=== PATIENT | female | born 1935 | race Caucasian/White ===

== ENCOUNTER 2022-01-04 15:23 | Inpatient (IN) | payer MEDICARE, BC ==
[~2022-01-04] VITALS: Ht 154.9 cm; Wt 56.5 kg
[2022-01-04] MEDS ORDERED: ONDANSETRON 4 MG/2 ML VIAL IV ONE (15:30)
[2022-01-04] MEDS ORDERED: IV NORMAL SALINE 1000 ML BAG IV ONE (15:30)
[2022-01-04] MEDS ORDERED: ONDANSETRON 4 MG/2 ML VIAL ONE (15:45)
[2022-01-04 16:02] LABS: HEMATOCRIT 33.2 % (31.2-41.9); MEAN CORPUSCULAR VOLUME 95.9 fL (75.5-95.3); PLATELET COUNT (AUTO) 319 K/uL (179-408)
[2022-01-04 16:05] LABS: CARBON DIOXIDE 27 mmol/L (21-32); CHLORIDE 101 mmol/L (98-107); CREATININE 1.5 mg/dL (0.6-1.3); GLUCOSE 157 mg/dL (74-106); POTASSIUM 4.1 mmol/L (3.5-5.1); UREA NITROGEN, BLOOD 32 mg/dL (7-18)
[2022-01-04 16:14] LABS: ALANINE AMINOTRANSFERASE 21 U/L (14-59); ALKALINE PHOSPHATASE 65 U/L (50-136); ASPARTATE AMINOTRANSFERASE 17 U/L (15-37); BILIRUBIN,DIRECT 0.1 mg/dL (0.0-0.2); BILIRUBIN,TOTAL 0.5 mg/dL (0.2-1.0)
[2022-01-04] MEDS ORDERED: MULT-594 PO (17:09)
[2022-01-04] MEDS ORDERED: METO25TA6 PO (17:09)
[2022-01-04] MEDS ORDERED: ACET-73 PO (17:09)
[2022-01-04] MEDS ORDERED: LOSA100T31 PO (17:09)
[2022-01-04] MEDS ORDERED: LOPE-195 PO (17:09)
[2022-01-04] MEDS ORDERED: IRON1CAP25 PO (17:09)
[2022-01-04] MEDS ORDERED: CALC1TAB35 PO (17:09)
[2022-01-04] MEDS ORDERED: MEMA10TA PO (17:09)
--- NOTE | 2022-01-04 17:41 | NUR ---
PT SEEN AND EVALUATED BY DR ABARCA.
--- NOTE | 2022-01-04 19:15 | NUR ---
Received thorough report from staff AYSHA Mcclendon. All questions answered. Nothing pending of pt except to give report to 3rd floor anahi, 307 and push pt upstairs. Covid neg, all belongings accounted for. Will be calling 3rd floor after shift change to try to give report. VSS, pt has good color and appearance. no s/sxof distress present. pt resting comfortably, awaiting transport up to room.
--- NOTE | 2022-01-04 19:50 | NUR ---
Called 3rd floor to given report, nurse busy in pt room, told that she will call back.
--- NOTE | 2022-01-04 20:30 | NUR ---
Thorough report given to staff telephone station installer Mari using sbar method. All questions answered. Asked to hold pt until room is fully cleaned and ready, approx 10min. I said that since a run just came in, ill will wait 15-20 before pushing the pt. Pt and family informed that pt will be tranfered soon, and will be preparing for transport upstair.
--- NOTE | 2022-01-04 21:00 | NUR ---
Pt transported upstairs by myself via gurney without difficulty or incident. Daughter asked about code status and discussed end-of-life decision making process and appropriateness of full code status on pt with such a gaurded prognosis. Pt's daughter said that her other sister has power of state's attorney and that she will discuss issue with her. Pt given resources to look up on google that would help them make an informed decision. Daughter was greatful for info. Pt placed on hospital bed in pos of comfort, CHIMNEY SWEEPER at bedside for initial admit vs.
[2022-01-04 21:05] VITALS: BP 158/81
--- NOTE | 2022-01-04 21:05 | NUR ---
RECEIVED PATIENT VIA GURNEY FROM ER. DAUGHTER AT BEDSIDE. PATIENT IS ALERT TO SELF. APPEARS APHASIC BUT PER DAUGHTER PATIENT HAS ADVANCED DEMENTIA AND TALKS FEW WORDS AT TIMES. VSS. NO S/S OF PAIN OR DISCOMFORT. NO FACIAL GRIMACE NOTED. NO RESP.DISTRESS NOTED. H/L INTACT AND PATENT, NOTED TO LEFT AC #20 GAUGE. PLACED ON TELE ORDERED. PACEMAKER NOTED TO LEFT CHEST WALL. PATIENT IS ON TELE AV PACING. BED ALARM ON. CALL LIGHT IN REACH. ALL NEEDS ATTENDED, WILL CONTINUE TO MONITOR AND ASSESS.
[2022-01-04] MEDS ORDERED: ONDANSETRON 4 MG/2 ML VIAL IV PRN (21:30)
[2022-01-04] MEDS ORDERED: TEMAZEPAM 15 MG CAPSULE PO PRN (21:30)
[2022-01-04] MEDS ORDERED: ACETAMINOPHEN 325 MG TABLET PO PRN (21:30)
[2022-01-04] MEDS: IV 1/2NS 1000 ML 1,000 ML IV PRN (21:48)
[2022-01-05] VITALS: BP 103/41
[2022-01-05 04:00] VITALS: BP 143/62
[2022-01-05] MEDS: PANTOPRAZOLE SODIUM 40 MG TABLET.DR PO SCH (06:32)
--- NOTE | 2022-01-05 06:48 | NUR ---
PATIENT SLEPT WELL THROUGHOUT THE NIGHT. ON TELE AV PACING. BED ALARM ON. ALL NEEDS ATTENDED. WILL CONTINUE TO MONITOR AND ASSESS.
[2022-01-05 07:07] LABS: HEMATOCRIT 30.6 % (31.2-41.9); MEAN CORPUSCULAR HEMOGLOBIN 32.1 uug (24.7-32.8); MEAN CORPUSCULAR VOLUME 94.9 fL (75.5-95.3); PLATELET COUNT (AUTO) 289 K/uL (179-408)
[2022-01-05 07:11] LABS: BILIRUBIN,TOTAL 0.5 mg/dL (0.2-1.0); CREATININE 1.1 mg/dL (0.6-1.3); MAGNESIUM 2.2 mg/dL (1.8-2.4); PHOSPHOROUS 3.2 mg/dL (2.5-4.9); POTASSIUM 4.1 mmol/L (3.5-5.1); TOTAL PROTEIN, SERUM 7.4 g/dL (6.4-8.2)
[2022-01-05 07:18] LABS: THYROID STIMULATING HORMONE 0.724 mIU/mL (0.358-3.740)
--- NOTE | 2022-01-05 08:45 | NUR ---
PATIENT SEEN BY THE PHYSICAL THERAPY FOR EVALUATION AND WAS ABLE TO AMBULATE ON THE HALLWAY WITH THE FRONT WHEEL WALKER WITH FAIR ENDURANCE AND BACK TO BED WILL CONTINUE TO OBSERVE.
[2022-01-05] MEDS: MEMANTINE HCL 5 MG TABLET PO SCH ×2 (09:09→20:33)
[2022-01-05] MEDS: MULTIVITAMINS,THERAPEUTIC TABLET PO SCH (09:09)
[2022-01-05] MEDS: METOPROLOL TARTRATE 25 MG TABLET PO SCH ×2 (09:10→20:34)
[2022-01-05] MEDS: IV 1/2NS 1000 ML 1,000 ML IV PRN (11:37)
[2022-01-05 12:00] VITALS: BP 125/37
[2022-01-05 16:00] VITALS: BP 138/57
--- NOTE | 2022-01-05 16:15 | NUR ---
IV SITE LEFT AC INFILTERATED UNABLE TO REINSERT MULTIPLE ATTEMPTS MD AWARE WITH ORDER FOR A MID MARKETING FINANCE MANAGER NOTIFIED MID LINE INSERTED TO HER RIGHT FOREARM GAUGE 18 WITH 3 ATTEMPTS CONNECTED TO HER IVF ORDERED.
--- NOTE | 2022-01-05 18:44 | NUR ---
PATIENT STRAIGHT CATH FOR URINE SPECIMEN ORDERED SINCE SHE IS INCONTINENT AND UNABLE TO PROVIDE URINE SPECIMEN AND SENT TO THE LAB
[2022-01-05 20:00] VITALS: BP 148/76
[2022-01-05 20:40] LABS: *BILIRUBIN,URIN NEGATIVE (NEGATIVE); *BLOOD, URINE 1+ (NEGATIVE); *CLARITY,URINE TURBID (CLEAR); *COLOR,URINE LIGHT YELLOW (YELLOW); *KETONES,URINE NEGATIVE (NEGATIVE); *UROBILINOGEN,URINE 0.2 E.U./dl (NORMAL); LEUKOCYTE ESTERASE ,URINE 1+ (NEGATIVE); NITRITE, URINE POSITIVE (NEGATIVE); UGLUCOSE NEGATIVE (NEGATIVE)
[2022-01-05 20:44] LABS: *CREATININE,URINE 59.8 mg/dL (30-125); *URINE TOTAL PROTEIN RANDOM 46.8 mg/dL (<150/24HR)
--- NOTE | 2022-01-05 22:30 | NUR ---
Daughter at bedside. Pt is in room air saturating at 95%. IV site at Right midline forearm 18 g intact and patent running 1/2 NS at 75 cc/hr. Call light in reach. Safety measures observed. No complaints noted. Will continue to monitor.
[2022-01-05 22:34] LABS: BACTERIA,URINE MANY /HPF (NONE SEEN); SQUAMOUS EPITHELIAL CELL,UR MANY /HPF (NONE SEEN); WBC,URINE TNTC /HPF (0-3)
--- NOTE | 2022-01-05 23:15 | NUR ---
Temperature was 100.2 F. Cooling measures were provided. Tylenol administered. Temp was rechecked after an hour, 98.2 F. Will continue to monitor.
[2022-01-06] VITALS: BP 144/72
[2022-01-06] MEDS: IV 1/2NS 1000 ML 1,000 ML IV PRN (00:32)
[2022-01-06 04:00] VITALS: BP 143/71
[2022-01-06 06:22] LABS: MEAN CORPUSCULAR HEMOGLOBIN 32.2 uug (24.7-32.8); MEAN CORPUSCULAR VOLUME 93.7 fL (75.5-95.3); PLATELET COUNT (AUTO) 273 K/uL (179-408)
[2022-01-06 06:26] LABS: BILIRUBIN,TOTAL 0.5 mg/dL (0.2-1.0); CREATININE 1.1 mg/dL (0.6-1.3); MAGNESIUM 1.8 mg/dL (1.8-2.4); PHOSPHOROUS 2.6 mg/dL (2.5-4.9); POTASSIUM 4.2 mmol/L (3.5-5.1); TOTAL PROTEIN, SERUM 6.9 g/dL (6.4-8.2)
[2022-01-06] MEDS: PANTOPRAZOLE SODIUM 40 MG TABLET.DR PO SCH (07:00)
[2022-01-06 09:31] VITALS: BP 117/94
[2022-01-06] MEDS: METOPROLOL TARTRATE 25 MG TABLET PO SCH (09:32)
[2022-01-06] MEDS: MULTIVITAMINS,THERAPEUTIC TABLET PO SCH (09:32)
[2022-01-06] MEDS: MEMANTINE HCL 5 MG TABLET PO SCH (09:32)
[2022-01-06 12:00] VITALS: BP 142/56
[2022-01-06] MEDS ORDERED: NITR100C6 PO (15:37)
--- NOTE | 2022-01-06 16:21 | NUR ---
Pt is being discharged, family at bedside waiting for other daughter to pear picker to take home. Personal belongings already taken home by family member. All discharge information and education given to daughter at bedside. IV and ID band removed. Will wheel pt down to car when transportation arrives. No signs of acute distress noted.
[2022-01-08 09:07] LABS: A/G RATIO 0.8 (0.7-1.7); ALBUMIN 2.7 g/dL (2.9-4.4); ALPHA-1-GLOBULIN 0.3 g/dL (0.0-0.4); ALPHA-2-GLOBULIN 0.8 g/dL (0.4-1.0); BETA GLOBULIN 0.8 g/dL (0.7-1.3); GAMMA GLOBULIN 1.6 g/dL (0.4-1.8); GLOBULIN, TOTAL 3.6 g/dL (2.2-3.9); M-SPIKE Not Observed g/dL (Not Observed)
== END 2022-01-06 17:05 | disposition home or self-care (01) | DRG 73 ==
LOC: ER 15:23 → TELE3 20:36
PROVIDERS: ADMIT Internal Medicine; ATTEND Nurse Practitioner Acute Care
PROC: 05H533Z Insertion of Infusion Device into Right Subclavian Vein, Percutaneous Approach (ICD-10-PCS; principal; 2022-01-05)
PROC: B546ZZA Ultrasonography of Right Subclavian Vein, Guidance (ICD-10-PCS; 2022-01-05)
DX: G90.8 Other disorders of autonomic nervous system (principal); N17.0 Acute kidney failure with tubular necrosis; E44.0 Moderate protein-calorie malnutrition; D68.59 Other primary thrombophilia; E87.1 Hypo-osmolality and hyponatremia; N39.0 Urinary tract infection, site not specified; K56.7 Ileus, unspecified; Z16.12 Extended spectrum beta lactamase (ESBL) resistance; R55 Syncope and collapse; E86.0 Dehydration; K44.9 Diaphragmatic hernia without obstruction or gangrene; Z20.822 Contact with and (suspected) exposure to COVID-19; M19.90 Unspecified osteoarthritis, unspecified site; K80.20 Calculus of gallbladder without cholecystitis without obstruction; M81.0 Age-related osteoporosis without current pathological fracture; F03.90 Unspecified dementia, unspecified severity, without behavioral disturbance, psychotic disturbance, mood disturbance, and anxiety; Z95.0 Presence of cardiac pacemaker; B96.89 Other specified bacterial agents as the cause of diseases classified elsewhere; D75.89 Other specified diseases of blood and blood-forming organs; Z74.09 Other reduced mobility; I11.9 Hypertensive heart disease without heart failure; Z68.23 Body mass index [BMI] 23.0-23.9, adult; B96.20 Unspecified Escherichia coli [E. coli] as the cause of diseases classified elsewhere; I12.9 Hypertensive chronic kidney disease with stage 1 through stage 4 chronic kidney disease, or unspecified chronic kidney disease; N18.30 Chronic kidney disease, stage 3 unspecified; Z96.643 Presence of artificial hip joint, bilateral; E11.22 Type 2 diabetes mellitus with diabetic chronic kidney disease
CPT/HCPCS: 36415; 70450; 71045; 83690; 83735; 83970; 84100; 84155; 84156; 84165; 84300; 84443; 84484; 85025; 87077; 87086; 93005; 97161; A4663; C1758; G0378; J2405; J7040